=== PATIENT | male | born 1990 | race Caucasian/White ===

== ENCOUNTER 2020-06-03 09:48 | Emergency (ER) | payer BC ==
--- OUTSIDE RECORDS SUMMARY | 2020-06-03 09:50 | XMS REPORT | Continuity of Care Document ---
:1990 Author Organization [facility] t Address [address] [place] [address] Care Team Providers Name Role Phone Soraya Ramirez MD Attending Clinician MARK Attending Clinician Unavailable Problems Condition Condition Condition Status Onset Resolution Last Treating Co mments Source Name Details Category Date Date Treatment Clinician Date Knee pain Knee pain Problem Active Uni vers HL7.[id number] [facility] [place] [facility] Patellofem Patellofem Problem Active U nivers oral oral HL7.CCDAR2 ity of stress stress [place] syndrome syndrome Physic i of left of left ans knee knee Allergies, Adverse Reactions, Alerts This patient has no known allergies or adverse reactions. Medications Ordered Filled Start Stop Current Ordering Indication Dosage Frequency Signature Comments Components Source Medication Medication Date Date Medication? Clinician (SIG) Name Name Diclofenac Diclofenac Yes CUONG FLORES QD APPLY TO Univers Sodium 1 % Sodium 1 % 1-15 M.D. LOWER it y of Transdermal Transdermal 00:00: EXTREMITIE [place] Gel Gel 00 S, 4 GM OF Physici GEL TO ans AFFECTED AREA 4 TIMES DAILY. DO NOT APPLY MORE THAN 16 GM DAILY TO ANY ONE AFFECTED JOINT. Meloxicam Meloxicam 2017-08 Yes CUONG FLORES Q0.5D TAKE 1 Univers 7.5 MG Oral 7.5 MG Oral 2-18 M.D. TABLET ity of Tablet Tablet 00:00: TWICE [place] 00 DAILY Physici NEEDED. ans Procedures This patient has no known procedures. Encounters Start End Encounter Admission Attending Care Care Encounter Source Date/Time Date/Time Type Type Clinicians Facility Department ID 2020-02-23 2020-02-23 Office ANTONIO Ramirez [id number] 10:32:24 11:18:17 Visit Lilianlizbeth Nunez [id number] [place] [id number] Jennifer [id number] [facility] 044 [facility] 2018-08-31 2018-08-31 Appointmen BENJAMIN FLORES [facility] [id number] Univers 14:15:00 14:15:00 t; COUNG FLORES M.D. at [facility] tiffanie HUTCHINS M.D. [place] [facility] 2018-08-03 2018-08-03 Appointmen [facility] [id number] [facility] 14:00:00 14:00:00 t; CUONG FLORES M.D. at [facility] tiffanie HUTCHINS M.D. [place] [facility] ans Results Test Description Test Time Test Comments Results Result Sour e Comments [U] XRAY KNEE 4 2018-08-03 Images Universit y of OR MORE VWS LEFT 14:44:00 acquired, not [place] [id number] reported on Physicians this accession number.
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
[2020-06-03] MEDS ORDERED: FENTANYL CITR 100 MCG/2 ML ONE (11:11)
[2020-06-03] MEDS ORDERED: ONDANSETRON 4 MG/2 ML VIAL ONE (11:12)
--- NOTE | 2020-06-03 11:31 | RAD REPORT ---
EXAM DESCRIPTION: RAD - Knee Left 3 View - 06/03/2020 11:04 am CLINICAL HISTORY: PAIN COMPARISON: No comparisons FINDINGS: No fracture or dislocation is seen. No significant joint effusion.
--- NOTE | 2020-06-03 11:37 | RAD REPORT ---
EXAM DESCRIPTION: RAD - Hip Left 2 View - 06/03/2020 11:04 am CLINICAL HISTORY: PAIN COMPARISON: No comparisons FINDINGS: No fracture, dislocation or AVN.
[2020-06-03 12:52] VITALS: TEMP 98
[2020-06-03 12:56] VITALS: BP 128/86; O2SAT 100
== END 2020-06-03 12:07 | disposition home or self-care (01) ==
LOC: ER 09:48
DX: S70.12XA Contusion of left thigh, initial encounter (principal); W22.8XXA Striking against or struck by other objects, initial encounter; Y93.89 Activity, other specified; Y92.009 Unspecified place in unspecified non-institutional (private) residence as the place of occurrence of the external cause; F17.210 Nicotine dependence, cigarettes, uncomplicated; Z88.2 Allergy status to sulfonamides
CPT/HCPCS: 73502; 73562; 96375; 96374; 99284; J3010; J2405

== ENCOUNTER 2024-11-14 10:12 | Emergency (ER) | payer BC, SELFPAY ==
--- OUTSIDE RECORDS SUMMARY | 2024-11-14 10:18 | XMS REPORT | Continuity of Care Document ---
Author Name Unknown Address [address] [facility] [address] [place] [address] [facility] Address [address] [facility] [address] [facility] [address] [place] [address] Care Team Providers Care Excellence Manager Name Role Phone Gayatri Brady MD Primary Care Physician Doctor Unassigned, [place] Attending Clinician U cherelle Doctor Unassigned, [place] Attending Clinician U navailable RAGHAV PETERSON Attending Clinician UnavailRAGHAV Bauer Attending Clinician Raghav Perez MD Attending Clinician [phone] Gayatri Brady MD Attending Clinician [phone] GAYATRI BRADY Attending Clinician Unavailable Lorrie Matt MD Attending Clinician + [phone] Po, [facility] Main Attending Clinician LENARD Diaz Attending Clinician Unavailable Lenard Jasso NP Attending Clinician [phone] HERNAN VILLALOBOS Attending Clinician Unavailable Hernan Villalobos MD Attending Clinician Rhianna Lipscomb MD Attending Clinician +[phone] RHIANNA LIPSCOMB Attending Clinician TAMARA Riddle Attending Clinician Unavailable Corey Lucio Attending Clinician Unavailable BINA MCKENZIE Attending Clinician Unavailable Bina Mckenzie MD Attending Clinician [phone] Teagan Boswell Attending Clinician [phone] Unknown, Attending Attending Clinician Unavailab TEAGAN Minor Attending Clinician Unavailable KAPIL ESCOBAR Attending Clinician UnavailKAPIL Rowell Attending Clinician Unavailab WAGNER Holder Attending Clinician Unavailable Felicitas Hawthorne MD Attending Clinician + [phone] FELICITAS HAWTHORNE Attending Clinician UnavailCUONG Guy M.D. Attending Clinician UnavailLENARD Peoples Admitting Clinician Unavailable Physician, No Primary or Family Admitting Clinic alexandro Unavailable BINA MCKENZIE Admitting Clinician Unavailable RHIANNA LIPSCOMB Admitting Clinician [facility] Payers Payer Name Policy Type Policy Number Effective Date Expirati on Date Source [facility] [id number] 2020 00:00:00 Problems Condition Name Condition Details Condition Category Status Onset Date Resolution Date Last Treatment Date Treating Clinician Comments Source Chronic pain of left knee Chronic pain of left knee Disease Active 1- 00:00: 00 [facility] Knee pain Knee pain Problem HL7.CCDAR2 Active [facility] 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 Social History Social Habit Start Date Stop Date Quantity Comments Source [facility] History of tobacco use Chews Tobacco [facility] Alcoholic beverage intake 2024-01-13 00:00:00 2024-01-13 00:00:00 Current drinker of alcohol (finding) [facility] History of Social function 2023-12-24 00:00:00 2023-12-24 00:00:00 [facility] Cigarettes smoked current (pack per day) - Reported 2023-12-24 00:00:00 2023-12-24 00:00:00 [facility] Cigarette pack-years 2023-12-24 00:00:00 2023-12-24 00:00:00 [facility] Tobacco use and exposure 2023-12-24 00:00:00 2023-12-24 00:00:00 User of smokeless tobacco [facility] Exposure to SARS-CoV-2 (event) 2022-09-06 00:00:00 2022-09-16 15:37:00 Not sure [facility] Alcohol intake 2020-08-02 00:00:00 2020-08-02 00:00:00 Current drinker of alcohol (finding) [facility] Alcohol Comment 2017-09-11 00:00:00 2017-09-11 00:00:00 12 monthly [facility] Sex assigned at 1990 00:00:00 1990 00:00:00 [facility] Smoking Status Start Date Stop Date Source Smokes tobacco daily 2023-12-24 00:00:00 [facility] Medications Ordered Medication Name Filled Medication Name Start Date Stop Date Current Medication? Ordering Clinician Indication Dosage Frequency Signature (SIG) Comments Components Source HYDROcodone -acetaminop hen 5-325 mg tablet 12-29 00:00: 00 01-06 04:59 :00 No [id number] 1{tbl} Take 1 tablet by mouth every 6 (six) hours as needed for Pain (scale 4-6) for up to 7 days. Indication s: acute pain [facility] HYDROcodone -acetaminop hen (NORCO) 10-325 mg tablet 1 tablet 12-19 18:30: 00 12-19 18:02 :00 No 1{tbl} 1 tablet, Oral, ONCE, 1 dose, On Thu12/20/23 at 1330, Routine [facility] ibuprofen (IBU) tablet 600 mg 12-19 17:45: 00 12-19 18:02 :00 No 600mg 600 mg, Oral, ONCE, 1 dose, On Thu12/20/23 at 1245, CARLA [facility] oseltamivir (TAMIFLU) capsule 75 mg 2022-08 07:00: 00 08-05 06:16 :00 No 75mg 75 mg, Oral, ONCE NOW, 1 dose, On Thu08/05/23 at 0100, CARLA [facility] HYDROcodone -acetaminop hen (NORCO 5) 5-325 mg tablet 1 tablet 2022-08 06:30: 00 08-05 06:35 :00 No 1{tbl} 1 tablet, Oral, ONCE, 1 dose, On Thu08/05/23 at 0030, CARLA [facility] ketorolac (TORADOL) injection 15 mg 2022-08 06:15: 00 08-05 05:29 :00 No 15mg 15 mg, Slow IV Push, ONCE, 1 dose, On Thu08/05/23 at 0015, Routine [facility] NaCl 0.9% (NS) bolus infusion 1,000 mL 2022-08 06:15: 00 08-05 06:16 :00 No 1000mL at 999 mL/hr, 1,000 mL, IV Piggyback, ONCE, 1 dose, On Thu08/05/23 at 0015, STAT [facility] ondansetron 4 mg disintegrat ing tablet 2022-08 00:00: 00 12-19 00:00 :00 No [id number] 4mg Take 1 tablet by mouth every 12 (twelve) hours as needed for Nausea and Vomiting (N/V). [facility] acetaminoph en-codeine 300-30 mg tablet 2022-08 00:00: 00 08-13 05:59 :00 No [id number] 1{tbl} Take 1 tablet by mouth every 4 (four) hours as needed for Pain (scale 7-10) for up to 7 days. Indication s: acute pain [facility] oseltamivir (TAMIFLU) 75 mg capsule 2022-08 00:00: 00 08-11 05:59 :00 No [id number] 75mg Take 1 capsule by mouth in the morning and 1 capsule in the evening. Do all this for 5 days. [facility] tc 99m-mebrofe greer injection 5 millicurie 11-24 13:30: 00 11-24 13:32 :00 No [id number] 5mCi 5 millicurie , Intravenou s, ONCE, 1 dose, On Thu11/24/22 at 0830, Routine [facility] maalox:diph enhydrAMINE :lidocaine 2 % viscous 1:1:1 (FIRST-MOUT HWASH BLM) oral suspension 15 mL 11-12 17:15: 00 11-12 17:13 :00 No 15mL 15 mL, Oral, ONCE, 1 dose, On Thu11/12/22 at 1215, CARLA [facility] sucralfate 1 gram tablet 11-12 00:00: 00 Yes [id number] 1g Take 1 tablet by mouth before meals and at bedtime. [facility] metoclopram cheyanne HCl 10 mg tablet 11-12 00:00: 00 12-19 00:00 :00 No [id number] 10mg Take 1 tablet by mouth every 6 (six) hours. [facility] pantoprazol e (PROTONIX) 40 mg EC tablet 02-03 00:00: 00 Yes [id number] 40mg Take 1 tablet by mouth daily. [facility] maalox:diph enhydrAMINE :lidocaine 2 % viscous 1:1:1 02-03 00:00: 00 12-19 00:00 :00 No [id number] 10mL Take 10 mL by mouth as needed (gastritis ). [facility] sucralfate 1 gram tablet 620 00:00: 00 11-12 00:00 :00 No [id number] 1g Take 1 tablet by mouth before meals and at bedtime. [facility] ketoconazol e 200 mg tablet 02-22 00:00: 12-19 00:00 :00 No [id number] 200mg Take 1 tablet by mouth daily. [facility] econazole nitrate 1 % cream 02-22 00:00: 00 12-19 00:00 :00 No [id number] Apply to area(s) daily. [facility] Diclofenac Sodium 1 % Transdermal Gel Diclofenac Sodium 1 % Transdermal Gel 1-15 00:00: 00 Yes CUONG FLORES M.D. QD APPLY TO LOWER EXTREMITIE S, 4 GM OF GEL TO AFFECTED AREA 4 TIMES DAILY. DO NOT APPLY MORE THAN 16 GM DAILY TO ANY ONE AFFECTED JOINT. [facility] Meloxicam 7.5 MG Oral Tablet Meloxicam 7.5 MG Oral Tablet 2017-08 2-18 00:00: 00 Yes CUONG FLORES M.D. Q0.5D TAKE 1 TABLET TWICE DAILY NEEDED. [facility] traMADOL (ULTRAM) 50 mg tablet 8-19 00:00: 00 12-19 00:00 :00 No 50mg Take 1 tablet by mouth every 6 (six) hours as needed for Pain (scale 4-6). [facility] Immunizations Ordered Immunization Name Filled Immunization Name Date Status Comments Source TD, NOS 2024-02-10 13:26:05 Completed [facility] TD, NOS 2024-01-27 14:00:00 Completed [facility] TD, NOS 2024-01-27 00:00:00 Completed [facility] TD, NOS 2024-01-26 00:00:00 Completed [facility] TD, NOS 2024-01-13 14:32:01 Completed [facility] TD, NOS 2024-01-13 14:30:00 Completed [facility] TD, NOS 2023-12-30 23:57:00 Completed [facility] TD, NOS 2023-12-30 00:00:00 Completed [facility] TD, NOS 2023-12-29 11:51:49 Completed [facility] TD, NOS 2023-12-29 11:49:52 Completed [facility] TD, NOS 2023-12-29 11:00:00 Completed [facility] TD, NOS 2023-12-25 00:00:00 Completed [facility] TD, NOS 2023-12-24 14:45:00 Completed [facility] TD, NOS 2023-12-21 00:00:00 Completed [facility] TD, NOS 2023-12-20 11:41:00 Completed [facility] TD, NOS 2023-08-04 23:12:00 Completed [facility] Td 2018-04-04 00:00:00 Completed [facility] TD, NOS 2018-04-04 00:00:00 Completed [facility] TD, NOS 2018-04-04 00:00:00 Completed [facility] TD, NOS 2018-04-04 00:00:00 Completed [facility] TD, NOS 2018-04-04 00:00:00 Completed [facility] TD, NOS 2018-04-04 00:00:00 Completed [facility] TD, NOS 2018-04-04 00:00:00 Completed [facility] Td 2018-04-04 00:00:00 Completed [facility] Vital Signs Vital Name Observation Time Observation Value Comments S ource Body height 2024-02-10 18:21:00 185.4 cm [facility] Body weight 2024-02-10 18:21:00 88.905 kg [facility] BMI 2024-02-10 18:21:00 25.86 kg/m2 [facility] Systolic blood pressure 2024-01-27 19:15:00 122 mm[Hg] [facility] Diastolic blood pressure 2024-01-27 19:15:00 84 mm[Hg] [facility] Heart rate 2024-01-27 19:14:00 68 /min [facility] Body height 2024-01-27 19:14:00 185.4 cm [facility] Body weight 2024-01-27 19:14:00 88.587 kg [facility] BMI 2024-01-27 19:14:00 25.77 kg/m2 [facility] Oxygen saturation in Arterial blood by Pulse oximetry 2024-01-27 19:14:00 98 /min [facility] Systolic blood pressure 2024-01-13 19:26:00 103 mm[Hg] [place] [facility] Diastolic blood pressure 2024-01-13 19:26:00 70 mm[Hg] [facility] Heart rate 2024-01-13 19:26:00 70 /min [facility] Body height 2024-01-13 19:26:00 185.4 cm [facility] Body weight 2024-01-13 19:26:00 90.765 kg [facility] BMI 2024-01-13 19:26:00 26.40 kg/m2 [facility] Oxygen saturation in Arterial blood by Pulse oximetry 2024-01-13 19:26:00 97 /min [facility] [place] Systolic blood pressure 2023-12-24 19:54:00 106 mm[Hg] [place] [facility] Diastolic blood pressure 2023-12-24 19:54:00 72 mm[Hg] [facility] Heart rate 2023-12-24 19:54:00 70 /min [facility] Body height 2023-12-24 19:54:00 185.4 cm [facility] Body weight 2023-12-24 19:54:00 92.307 kg [facility] BMI 2023-12-24 19:54:00 26.85 kg/m2 [facility] Oxygen saturation in Arterial blood by Pulse oximetry 2023-12-24 19:54:00 98 /min [facility] Systolic blood pressure 2023-12-20 19:14:26 131 mm[Hg] [facility] Diastolic blood pressure 2023-12-20 19:14:26 91 mm[Hg] [facility] Heart rate 2023-12-20 19:14:26 84 /min Unive [facility] Respiratory rate 2023-12-20 19:14:26 12 /min [facility] Oxygen saturation in Arterial blood by Pulse oximetry 2023-12-20 19:14:26 97 /min [facility] Body temperature 2023-12-20 16:39:00 37.28 Clau [facility] Body height 2023-12-20 16:39:00 185.4 cm Univ [facility] Body weight 2023-12-20 16:39:00 99.791 kg [facility] BMI 2023-12-20 16:39:00 29.03 kg/m2 Univ [facility] Body temperature 2023-08-05 06:38:00 38.5 Clau [facility] Systolic blood pressure 2023-08-05 05:09:00 133 mm[Hg] [facility] Diastolic blood pressure 2023-08-05 05:09:00 82 mm[Hg] [facility] Heart rate 2023-08-05 05:09:00 103 /min Unive [facility] Respiratory rate 2023-08-05 05:09:00 20 /min [facility] Body height 2023-08-05 05:09:00 185.4 cm Univ [facility] Body weight 2023-08-05 05:09:00 99.791 kg [facility] BMI 2023-08-05 05:09:00 29.03 kg/m2 [facility] Oxygen saturation in Arterial blood by Pulse oximetry 2023-08-05 05:09:00 97 /min [facility] Systolic blood pressure 2022-11-12 16:40:00 110 mm[Hg] [facility] Diastolic blood pressure 2022-11-12 16:40:00 78 mm[Hg] [facility] Heart rate 2022-11-12 16:40:00 85 /min Unive [facility] Body temperature 2022-11-12 16:40:00 36.61 Clau [facility] Respiratory rate 2022-11-12 16:40:00 18 /min [facility] Body weight 2022-11-12 16:40:00 96.163 kg [facility] BMI 2022-11-12 16:40:00 27.97 kg/m2 [facility] Oxygen saturation in Arterial blood by Pulse oximetry 2022-11-12 16:40:00 99 /min [facility] Systolic blood pressure 2022-07-30 20:23:00 122 mm[Hg] [facility] Diastolic blood pressure 2022-07-30 20:23:00 73 mm[Hg] [facility] Heart rate 2022-07-30 20:23:00 96 /min [facility] Body temperature 2022-07-30 20:23:00 37.06 Clau [facility] Respiratory rate 2022-07-30 20:23:00 16 /min [facility] Body height 2022-07-30 20:23:00 185.4 cm [facility] Body weight 2022-07-30 20:23:00 96.571 kg [facility] BMI 2022-07-30 20:23:00 28.09 kg/m2 [facility] Oxygen saturation in Arterial blood by Pulse oximetry 2022-07-30 20:23:00 98 /min [facility] Procedures Procedure Date / Time Performed Performing Clinician Source DME/SUPPLY JUSTIFICATION 2024-01-22 17:16:52 Doc tor Unassigned, [place] [facility] XR CHEST 1 VW 2023-12-29 17:18:01 [facility] SPLINT FOREARM-HAND STATIC 2023-12-20 18:58:37 Lenard Jasso [facility] COMP. METABOLIC PANEL ([id number]) 2023-08-05 05:25:00 Hernan Villalobos [facility] CBC WITH DIFF 2023-08-05 05:25:00 Hernan Villalobos [facility] RAPID STREP SCREEN FOR GROUP A 2023-08-05 05:15:00 Hernan Villalobos [facility] RAPID INFLUENZA A/B 2023-08-05 05:15:00 Hernan Villalobos [facility] COVID-19 (ID NOW RAPID TESTING) 2023-08-05 05:15:00 Hernan Villalobos [facility] EXTERNAL PROVIDER RECORDS 2022-12-10 05:01:00 Doctor Unassigned, [place] [facility] NM HEPATOBILIARY W INTERVENTION 2022-11-24 15:04:00 Rhianna Lipscomb [facility] NM HEPATOBILIARY W INTERVENTION 2022-11-24 15:04:00 Rhianna Lipscomb [facility] PATIENT FINANCIAL POLICY 2022-11-24 13:02:23 Doctor Unassigned, [place] [facility] LIPASE 2022-11-12 17:12:00 Bina Mckenzie [facility] COMP. METABOLIC PANEL ([id number]) 2022-11-12 17:12:00 Bina Mckenzie [facility] CBC WITH DIFF 2022-11-12 17:12:00 Bina Mckenzie [facility] CONSENT/REFUSAL FOR DIAGNOSIS AND TREATMENT 2022-11-12 16:31:03 Doctor Unassigned, [place] [facility] POCT MOLECULAR FLU 2022-07-30 20:33:00 Unknown, Attend ing [facility] POCT MOLECULAR STREP 2022-07-30 20:26:00 Unknown, Atte nding [facility] ASSIGNMENT OF BENEFITS 2022-07-30 20:17:23 Docto r Unassigned, [place] [facility] Encounters Start Date/Time End Date/Time Encounter Type Admission Type Attending [facility] Care Facility Care Department Encounter ID Source 2021-06-17 02:23:29 Emergency [facility] [id number] [facility] 2024-01-22 00:00:00 2024-10-01 07:34:38 Orders Only Doctor Unassigned, [place] Doctor Unassigned, [place] [facility] 1.2.840.114 350.1.13.10 4.2.7.2.686 [id number] [facility] 2024-01-27 00:00:00 2024-02-27 18:15:19 Patient Secure Msg Doctor Unassigned, [place] [facility]JUAN A [facility] 1.2.840.114 350.1.13.10 4.2.7.2.686 [id number] [facility] 2024-02-10 13:26:05 2024-02-10 23:59:00 Outpatient R PETERSONRAGHAV COLEYRAGHAV [facility] [id number] [facility] 2024-02-10 13:26:05 2024-02-10 23:59:00 Hospital Encounter Raghav Peterson [facility]?JUA NA [facility] 1.2.840.114 350.1.13.10 4.2.7.2.686 [id number] [facility] 2024-02-10 13:30:00 2024-02-10 13:54:26 Office Visit Raghav Peterson [facility] 1.2.840.114 350.1.13.10 4.2.7.2.686 [id number] [facility] 2024-01-27 00:00:00 2024-01-27 16:06:07 Letter (Out) Raghav Peterson [facility] 1.2.840.114 350.1.13.10 4.2.7.2.686 [id number] [facility] 2024-01-27 14:00:00 2024-01-27 14:15:00 Office Visit Gayatri Brady [facility] 1.2.840.114 350.1.13.10 4.2.7.2.686 [id number] [facility] 2024-01-27 14:00:00 2024-01-27 14:00:00 Outpatient R GAYATRI BRADY [facility] [id number] [facility] 2024-01-26 00:00:00 2024-01-27 08:35:59 Telephone Gayatri Brady [facility]JUAN A [facility] 1.2.840.114 350.1.13.10 4.2.7.2.686 [id number] [facility] 2024-01-13 14:32:01 2024-01-13 23:59:00 Outpatient R RAGHAV PETERSON [facility] [id number] [facility] 2024-01-13 14:32:01 2024-01-13 23:59:00 Hospital Encounter Raghav Peterson [facility]JUAN A [facility] 1.2.840.114 350.1.13.10 4.2.7.2.686 [id number] [facility] 2024-01-13 14:30:00 2024-01-13 14:56:01 Office Visit Raghav Peterson [facility] 1.2.840.114 350.1.13.10 4.2.7.2.686 [id number] [facility] 2023-12-30 23:57:00 2023-12-30 23:59:00 Hospital Encounter Peterson Raghav Gabino [facility] 1.2.840.114 350.1.13.10 4.2.7.2.686 [id number] [facility] 2023-12-30 00:00:00 2023-12-30 23:59:00 Outpatient R RAGHAV PETERSON [facility] [id number] [facility] 2023-12-30 00:00:00 2023-12-30 16:38:24 Telephone Lorrie Matt [facility] 1.2.840.114 350.1.13.10 4.2.7.2.686 [id number] [facility] 2023-12-29 11:51:49 2023-12-29 23:59:00 Hospital Encounter Raghav Peterson [facility] 1.2840.114 350.1.13.10 4.2.7.2.686 [id number] [facility] 2023-12-29 11:49:52 2023-12-29 11:50:00 Hospital Encounter Raghav Peterson [facility] 1.2.840.114 350.1.13.10 4.2.7.2.686 [id number] [facility] 2023-12-29 11:49:51 2023-12-29 11:50:00 Outpatient R RAGHAV PETERSON [facility] [id number] [facility] 2023-12-29 11:00:00 2023-12-29 11:15:00 Loss Control Technician Visit Pob, Adc Lab Main Raghav Peterson [facility] 1.2.840.114 350.1.13.10 4.2.7.2.686 [id number] [facility] 2023-12-25 00:00:00 2023-12-25 15:24:18 Telephone Raghav Peterson [facility]?JUAN A [facility] 1.2.840.114 350.1.13.10 4.2.7.2.686 [id number] [facility] 2023-12-24 14:45:00 2023-12-24 15:30:31 Outpatient R RAGHAV PETERSON [facility] [id number] [facility] 2023-12-24 14:45:00 2023-12-24 15:30:31 Office Visit Raghav Peterson [facility] 1.2840.114 350.1.13.10 4.2.7.2.686 [id number] [facility] 2023-12-21 00:00:00 2023-12-22 08:43:24 Telephone Raghav Peterson [facility]?JUANA [facility] 1.2840.114 350.1.13.10 4.2.7.2.686 [id number] [facility] 2023-12-20 11:41:00 2023-12-20 14:19:00 Emergency X LENARD JASSO [facility] [id number] [facility] 2023-12-20 11:41:00 2023-12-20 14:19:00 Emergency Lenard Jasso [facility] 1.2840.114 350.1.13.10 4.2.7.2.686 [id number] [facility] 2023-08-04 23:12:00 2023-08-05 00:49:00 Emergency X HERNAN VILLALOBOS [facility] [id number] [facility] 2023-08-04 23:12:00 2023-08-05 00:49:00 Emergency Hernan Villalobos [facility] 1.20.114 350.1.13.10 4.2.7.2.686 [id number] [facility] 2022-12-10 00:00:00 2022-12-10 00:00:00 Orders Only Doctor Unassigned, [place] [facility] 1.2.840.114 350.1.13.10 4.2.7.2.686 [id number] [facility] 2022-11-24 08:02:28 2022-11-24 23:59:00 Hospital Encounter Rhianna Taylor [facility] 1.2840.114 350.1.13.10 4.2.7.2.686 [id number] [facility] 2022-11-24 08:01:41 2022-11-24 08:01:00 Outpatient R RHIANNA TAYLOR [facility] [id number] [facility] 2022-11-24 08:00:00 2022-11-24 08:01:00 Hospital Encounter Rhianna Taylor [facility] 1.2840.114 350.1.13.10 4.2.7.2.686 [id number] [facility] 2022-11-19 08:45:00 2022-11-19 08:45:00 Outpatient TAMARA GALINDO [id number] [place] [facility] 2022-11-14 12:40:00 2022-11-14 17:49:00 Emergency EM Corey Lucio [facility]ACL ANDREA [id number] [facility] 2022-11-12 11:42:00 2022-11-12 14:01:00 Emergency X BINA MCKENZIE [facility] ERT [id number] [facility] 2022-11-12 11:42:00 2022-11-12 14:01:00 Emergency Bina Mckenzie [facility] 1.2840.114 350.1.13.10 4.2.7.2.686 [id number] [facility] 2022-11-12 00:00:00 2022-11-12 00:00:00 Orders Only Doctor Unassigned, [place] [facility] 1.2840.114 350.1.13.10 4.2.7.2.686 [id number] [facility] 2022-09-19 16:20:01 2022-09-19 23:59:00 Outpatient R RHIANNA TAYLOR [facility] [id number] [facility] 2022-09-19 16:20:01 2022-09-19 23:59:00 Hospital Encounter Rhianna Taylor [facility] 1.2.840.114 350.1.13.10 4.2.7.2.686 [id number] [facility] 2022-07-30 14:20:00 2022-07-30 14:40:00 Urgent Care Teagan Keenan Unknown, Attending [facility]?JUAN A [facility] 1.2.840.114 350.1.13.10 4.2.7.2.686 [id number] [facility] 2022-07-30 14:20:00 2022-07-30 14:20:00 Outpatient R TEAGAN KEENAN [facility] [id number] [facility] 2022-07-30 00:00:00 2022-07-30 00:00:00 Orders Only Doctor Unassigned, [place] [facility] 1.2.840.114 350.1.13.10 4.2.7.2.686 [id number] [facility] 2021-09-19 10:00:00 2021-09-19 10:00:00 Outpatient R WAGNER ROUSSEAU [facility] [id number] [facility] 2021-02-22 14:45:00 2021-02-22 14:45:00 Outpatient R RHIANNA TAYLOR [facility] [id number] [facility] 2020-11-05 08:30:00 2020-11-05 08:30:00 Outpatient R GAYATRI BRADY [facility] [id number] [facility] 2020-08-02 11:40:00 2020-08-02 11:40:00 Outpatient R [facility] [id number] [facility] 2020-02-23 10:32:24 2020-02-23 11:18:17 Office Visit Felicitas Hawthorne [facility] 1.2.840.114 350.1.13.10 4.2.7.2.686 [id number] 2020-02-23 10:30:00 2020-02-23 10:30:00 Outpatient R FELICITAS HAWTHORNE [facility] [id number] [facility] 2019-10-10 12:00:00 2019-10-10 12:00:00 Outpatient WAGNER POON [facility] [id number] [facility] 2018-08-31 14:15:00 2018-08-31 14:15:00 AppointCUONG Jimenez M.D. MEEKS, EVAN, M.D. [facility] [place] [id number] [place] [facility] 2018-08-03 14:00:00 2018-08-03 14:00:00 AppointCUONG Jimenez M.D. MEEKS, EVAN, M.D. [facility] [place] [id number] [place] [facility] Results Test Description Test Time Test Comments Results Result Comments Source DME/SUPPLY JUSTIFICATION 17:16:52 Ordered by an unspecified provider. [facility] XR CHEST 1 VW 18:13:00 ORDERING PROVIDER: RAGHAV PETERSONHISTORY: surgery TECHNIQUE: Portable AP view of the chest.COMPARISON(S): None. FINDINGS:Support devices: None. Lungs/pleura: Lungs are clear. No pleural effusion or pneumothorax. Heart/mediastinum: Heart and mediastinum are normal. Bones/Soft Tissues: No acute osseous abnormality. Upper abdomen: Imaged upper abdomen is unremarkable. [facility] Splint Application 18:58:37 Lenard Jasso NP ? ? 12/20/2023 ?2:10 PMSplint Application Date/Time: 12/20/2023 1:58 PM Performed by: Lenard Jasso NPAuthorized by: Lenard Jasso NP ?Consent: ?Consent obtained: ?Verbal ?Consent given by: ?Patient ?Risks, benefits, and alternatives were discussed: yes ? ?Risks discussed: ?Discoloration, numbness, pain and swelling ?Alternatives discussed: ?No treatmentUniversal protocol: ?Procedure explained and questions answered to patient or proxy's satisfaction: yes ? ?Patient identity confirmed: ?Verbally with patientPre-procedure details: ?Distal neurologic exam: ?Normal ?Distal perfusion: distal pulses strong and brisk capillary refill ?Procedure details: ?Location: ?Hand ?Hand location: ?R hand ?Strapping: no ? ?Splint type: ?Volar short arm ?Supplies: ?Fiberglass ?Attestation: Splint applied and adjusted personally by me ?Post-procedure details: ?Distal neurologic exam: ?Normal ?Distal perfusion: distal pulses strong and brisk capillary refill ?Comments: ? Signs of compartment syndrome discussed with return precautions [facility] with [id number] 05:58:47* Test Item Value Reference Range Interpretation Comme nts WBC (test code = 6690-2) 7.58 See_Comment [Automated Playtikaa EnergyChest] The system which generated this result transmitted reference range: 4.20 - 10.70 10*3/?L. The reference range was not used to interpret this result as normal/abnormal. RBC (test code = 789-8) 5.15 See_Comment [Automated Defense Mobile] The system which generated this result transmitted reference range: 4.26 - 5.52 10*6/?L. The reference range was not used to interpret this result as normal/abnormal. HGB (test code = 718-7) 16.0 g/dL 12.2-16.4 HCT (test code = 4544-3) 45.7 % 38.4-49.3 MCV (test code = 787-2) 88.7 fL 81.7-95.6 MCH (test code = 785-6) 31.1 pg 26.1-32.7 MCHC (test code = 786-4) 35.0 g/dL 31.2-35.0 RDW-SD (test code = 75827-3) 43.3 fL 38.5-51.6 RDW-CV (test code = 788-0) 13.2 % 12.1-15.4 PLT (test code = 777-3) 218 See_Comment [Automated Playtikaa ge] The system which generated this result transmitted reference range: 150 - 328 10*3/?L. The reference range was not used to interpret this result as normal/abnormal. MPV (test code = 04667-4) 11.0 fL 9.8-13.0 NRBC/100 WBC (test code = 8446954167) 0.0 See_Comment [Automated Greenbox ssage] The system which generated this result transmitted reference range: 0.0 - 10.0 /100 WBCs. The reference range was not used to interpret this result as normal/abnormal. NRBC x10^3 (test code = 8689293369) See_Comment [Automated Playtikaa ge] The system which generated this result transmitted reference range: 10*3/?L. The reference range was not used to interpret this result as normal/abnormal. GRAN MAT (NEUT) % (test code = 770-8) 70.6 % IMM GRAN % (test code = 6247916764) 0.30 % LYMPH % (test code = 736-9) 14.8 % MONO % (test code = 5905-5) 13.1 % EOS % (test code = 713-8) 0.4 % BASO % (test code = 706-2) 0.8 % GRAN MAT x10^3(ANC) (test code = 2731441865) 5.36 10*3/uL 1.99-6.95 IMM GRAN x10^3 (test code = 5656604536) 0.00-0.06 LYMPH x10^3 (test code = 731-0) 1.12 10*3/uL 1.09-3.23 MONO x10^3 (test code = 742-7) 0.99 10*3/uL 0.36-1.02 EOS x10^3 (test code = 711-2) 0.03 10*3/uL 0.06-0.53 L BASO x10^3 (test code = 704-7) 0.06 10*3/uL 0.01-0.09 Lab Interpretation (test code = 31536-3) Abnormal [facility] [id number] 14:51:00* Test Item Value Reference Range Interpretation Comme nts SODIUM (test code = NA) 141 mEq/L 134-147 N POTASSIUM (test code = K) 3.6 mEq/L 3.4-5.0 N CHLORIDE (test code = CL) 107 mEq/L 100-108 N CARBON DIOXIDE (test code = CO2) 27 mEq/l 21-33 N ANION GAP (test code = GAP) 10 0-20 N GLUCOSE (test code = GLU) 97 mg/dL 70-110 N BLOOD UREA NITROGEN (test code = BUN) 12 mg/dL 7-18 N GLOMERULAR FILTRATION RATE (test code = GFR) 102.6 105-110 L The Glomerular Filtration Rate is a calculated parameterbased on serum Creatinine, patient age and sex. GFR valuesless than 60 mL/min/1.73 square meters are indicative ofChronic Kidney Disease. Values less than 15 mL/min/1.73square meters indicate Kidney failure. The calculation forGFR is based on the CKD-EPI (2020) calculation. This formulais race indifferent and is the recommended formula for GFRby the National Kidney Foundation for Adults.The GFR will not calculate if the sex is unknown or if thepatient's age is <18 years. CREATININE (test code = CREAT) 1.0 mg/dL 0.6-1.3 N TOTAL PROTEIN (test code = PROT) 7.4 g/dL 6.4-8.2 N ALBUMIN (test code = ALB) 4.40 g/dL 3.4-5.0 N CALCIUM (test code = CA) 9.2 mg/dL 8.0-10.5 N BILIRUBIN TOTAL (test code = BILT) 0.50 mg/dL 0.0-1.0 N SGOT/AST (test code = AST) 22 IUnit/L 15-37 N SGPT/ALT (test code = ALT) 21 IUnit/L 30-65 L ALKALINE PHOSPHATASE TOTAL (test code = ALKP) 85 IUnit/L 20-125 N TROP-I HIGH [id number] 14:51:00* Test Item Value Reference Range Interpretation Comme nts TROP-I HIGH SENSITIVITY (test code = TROPIHS) < 3 ng/L 0-54 N CAUTION: Units o f the current test methodology (ng/L) differfrom the prior test methodology (ng/mL) by a factor of 1000. 99th Percentile Upper Reference Limit (URL): Females: 34 ng/LMales: 54 ng/L In order to distinguish acute elevations of high sensitivitytroponin from other clinical conditions, the FourthUniversal Definition of Myocardial Infarction stressesclinical assessment and the demonstration of a rise and/orfall in serial troponin results above the URL. These results were obtained using Siemens AteAddoway IM TnIHreagent. Results from different methodologies should not becompared to one another as quantitative results and URLs mayvary by method. INFLUENZA A [id number] 14:33:00* Test Item Value Reference Range Interpretation Comme nts INFLUENZA A (test code = FLUAPCR) Negative Negative INFLUENZA B (test code = FLUBPCR) Negative Negative Coronavirus 2018 nCoV [id number] 14:33:00* Test Item Value Reference Range Interpretation Comme nts Coronavirus 2019 nCoV Bedside (test code = PAEZQ69UMAOI) NEGATIVE Negative The [employer] ID NO W utilizes isothermal Nicking EnzymeAmplification Reaction (NEAR) technology in the qualitativedetection of infectious diseases. With NEAR technology,amplified target detection is achieved with the use offluorescently labeled molecular beacons, comparable to PCRtechniques -----Negative results should be treated as presumptive and, ifinconsistent with clinical signs and symptoms or necessaryfor patient management, should be tested with an alternativemolecular assay. Negative results do not preclude GFBM-NtY-8vbcfbulsr and should not be used as the sole basis forpatient management decisions. Negative results should beconsidered in the context of a patient's recent exposures,history, presence of clinical signs and symptoms consistentwith COVID-19. CBC W/AUTO [id number] 14:14:00* Test Item Value Reference Range Interpretation Comme nts WHITE BLOOD CELL (test code = WBC) 7.6 x10 3/uL 4.5-11.0 N RED BLOOD CELL (test code = RBC) 5.12 x10 6/uL 4.00-5.60 N HEMOGLOBIN (test code = HGB) 15.5 g/dL 12.5-16.9 N HEMATOCRIT (test code = HCT) 44.4 % 37.5-50.7 N MEAN CELL VOLUME (test code = MCV) 86.7 fL 81.0-99.0 N MEAN CELL HGB (test code = MCH) 30.3 pg 27.0-33.0 N MEAN CELL HGB CONCETRATION (test code = MCHC) 34.9 g/dL 33.0-37.0 N RED CELL DISTRIBUTION WIDTH CV (test code = RDW) 13.2 % 11.5-14.5 N RED CELL DISTRIBUTION WIDTH SD (test code = RDW-SD) 41.1 fL 37.0-54.0 N PLATELET COUNT (test code = PLT) 297 x10 3/uL 150-400 N MEAN PLATELET VOLUME (test c ode = MPV) 9.9 fL 7.0-9.0 H NEUTROPHIL % (test code = NT%) 53.9 % 56.0-77.0 L IMMATURE GRANULOCYTE % (test code = IG%) 0.3 % 0.0-2.0 N LYMPHOCYTE % (test code = LY%) 30.7 % 14.0-32.0 N MONOCYTE % (test code = MO%) 10.0 % 4.8-9.0 H EOSINOPHIL % (test code = EO%) 4.3 % 0.3-3.7 H BASOPHIL % (test code = BA%) 0.8 % 0.0-2.0 N NUCLEATED RBC % (test code = NRBC%) 0.0 % 0-0 N NEUTROPHIL # (test code = NT#) 4.09 x10 3/uL 2.0-7.6 N IMMATURE GRANULOCYTE # (test code = IG#) 0.02 x10 3/uL 0.00-0.03 N LYMPHOCYTE # (test code = LY#) 2.33 x10 3/uL 1.0-3.8 N MONOCYTE # (test code = MO#) 0.76 x10 3/uL 0.1-0.8 N EOSINOPHIL # (test code = EO#) 0.33 x10 3/uL 0.0-0.2 H BASOPHIL # (test code = BA#) 0.06 x10 3/uL 0.0-0.2 N NUCLEATED RBC # (test code = NRBC#) 0.00 x10 3/uL 0.0-0.1 N MANUAL DIFF REQUIRED (test c ode = MDIFF) NO - XR CHEST 1 [id number] 00:00:00 [facility] 1990 Sex: M FAX: Manuel Marquez [phone] [place]: St: REG Name: IWONA LOPEZ [facility] : 1990 Age/S: 32/M [address] [place] [address] Bl Unit #: [id number] Loc: [place] [address] Phys: Manuel Pina Acct: [id number] Dis Date: Status: REG ER PHONE #: [phone] Exam Date: 11/14/2022 1403 FAX #: [phone] Reason: upper abd pain EXAMS: CPT CODE: [id number] XR CHEST 1 V 48565 PROCEDURE INFORMATION: Exam:XR Chest Exam date and time: 11/14/2022 2:01 PM Age: 32 years old Clinical indication: Other: Upper abd pain, h/x of hernia TECHNIQUE: Imaging protocol: Radiologic exam of the chest. Views: 1 view. COMPARISON: No relevant prior studies available. FINDINGS: Lungs: . No gross consolidation. Pleural spaces: No significant pleural effusion. No significant pneumothorax. Heart/Mediastinum: Grossly normal cardiac silhouette. Vasculature is unremarkable. Bones/joints: No radiographically evident of displaced rib fracture. IMPRESSION: No acute cardiopulmonary process detected. at 1431 Reported and signed by: Jose Antonio Camara M.D. CC: Manuel CASAS Technologist: RT Deb(Kalee) Trnscrd Date/Time/By: 11/14/2022 (1431) : By: [email or web address] Orig Print D/T: S: 11/14/2022 (1431) PAGE 1 Signed ReportCOMP. METABOLIC PANEL (03316)2022-11-12 17:55:35* Test Item Value Reference Range Interpretation Comme nts NA (test code = 3493333139) 137 mmol/L 135-145 K (test code = 7708846860) 4.2 mmol/L 3.5-5.0 CL (test code = 4326629821) 103 mmol/L 98-108 CO2 TOTAL (test code = 3489093314) 27 mmol/L 23-31 AGAP (test code = 3662928360) 7 2-16 BUN (test code = 3514817872) 8 mg/dL 7-23 GLUCOSE (test code = 7390606634) 83 mg/dL 70-110 CREATININE (test code = 6293796684) 0.96 mg/dL 0.60-1.25 TOTAL BILI (test code = 5149303938) 0.8 mg/dL 0.1-1.1 CALCIUM (test code = 1120890906) 9.5 mg/dL 8.6-10.6 T PROTEIN (test code = 5087729979) 7.3 g/dL 6.3-8.2 ALBUMIN (test code = 6012024281) 4.6 g/dL 3.5-5.0 ALK PHOS (test code = 7215387189) 68 U/L 34-122 ALTv (test code = 1742-6) 28 U/L 5-50 AST(SGOT) (test code = 0816152505) 30 U/L 13-40 eGFR (test code = 0428141639) 90.8 mL/min/1.73m2 LILA (test code = LILA) Association of Glomerular Filtration Rate (GFR) and Staging of Kidney Disease* + + +- +| GFR (mL/min/1.73 m2) ?| With Kidney Damage ?| ?Without Kidney Damage+ ------+ ----+ ------+| ?>90 ?| ?Stage one ?| ? Normal ?+ -+ + -+| ?60-89 ?| ?Stage two ?| ? Decreased GFR ? + + +- +| ?30-59 ?| ?Stage three ?| ? Stage three ? + + +- +| ?15-29 ?| ?Stage four ? | ? Stage four ?+ -+ + -+| ?<15 (or dialysis) ? ?| ?Stage five ? | ? Stage five ?+ -+ + -+ *Each stage assumes the associated GFR level has been in effect for at least three months. ?Stages 1 to 5, with or without kidney disease, indicate chronic kidney disease. Notes: Determination of stages one and two (with eGFR >59mL/min/1.73 m2) requires estimation of kidney damage for at least three months as defined by structural or functional abnormalities of the kidney, manifested by either:Pathological abnormalities or Markers of kidney damage (including abnormalities in the composition of the blood or urine or abnormalities in imaging tests). [facility] 17:55:15* Test Item Value Reference Range Interpretation Comme nts LIPASE (test code = 8880021497) 127 U/L 0-220 Lab Interpretation (test cod e = 32778-9) Normal [facility] WITH [id number] 17:42:12* Test Item Value Reference Range Interpretation Comme nts WBC (test code = 6690-2) 8.38 See_Comment [Automated messa ge] The system which generated this result transmitted reference range: 4.20 - 10.70 10*3/?L. The reference range was not used to interpret this result as normal/abnormal. RBC (test code = 789-8) 4.98 See_Comment [Automated Playtikaa ge] The system which generated this result transmitted reference range: 4.26 - 5.52 10*6/?L. The reference range was not used to interpret this result as normal/abnormal. HGB (test code = 718-7) 15.3 g/dL 12.2-16.4 HCT (test code = 4544-3) 43.6 % 38.4-49.3 MCV (test code = 787-2) 87.6 fL 81.7-95.6 MCH (test code = 785-6) 30.7 pg 26.1-32.7 MCHC (test code = 786-4) 35.1 g/dL 31.2-35.0 H RDW-SD (test code = 80130-7) 42.1 fL 38.5-51.6 RDW-CV (test code = 788-0) 13.1 % 12.1-15.4 PLT (test code = 777-3) 296 See_Comment [Automated Playtikaa ge] The system which generated this result transmitted reference range: 150 - 328 10*3/?L. The reference range was not used to interpret this result as normal/abnormal. MPV (test code = 75510-3) 10.0 fL 9.8-13.0 NRBC/100 WBC (test code = 2386032392) 0.0 See_Comment [Automated Greenbox ssage] The system which generated this result transmitted reference range: 0.0 - 10.0 /100 WBCs. The reference range was not used to interpret this result as normal/abnormal. NRBC x10^3 (test code = 6048508804) See_Comment [Automated Playtikaa ge] The system which generated this result transmitted reference range: 10*3/?L. The reference range was not used to interpret this result as normal/abnormal. GRAN MAT (NEUT) % (test code = 770-8) 55.1 % IMM GRAN % (test code = 6354130677) 0.20 % LYMPH % (test code = 736-9) 30.3 % MONO % (test code = 5905-5) 9.7 % EOS % (test code = 713-8) 3.7 % BASO % (test code = 706-2) 1.0 % GRAN MAT x10^3(ANC) (test code = 7199557977) 4.62 10*3/uL 1.99-6.95 IMM GRAN x10^3 (test code = 5637614684) 0.00-0.06 LYMPH x10^3 (test code = 731-0) 2.54 10*3/uL 1.09-3.23 MONO x10^3 (test code = 742-7) 0.81 10*3/uL 0.36-1.02 EOS x10^3 (test code = 711-2) 0.31 10*3/uL 0.06-0.53 BASO x10^3 (test code = 704-7) 0.08 10*3/uL 0.01-0.09 Lab Interpretation (test code = 53470-3) Abnormal [facility] MOLECULAR [id number] 20:44:32* Test Item Value Reference Range Interpretation Comme nts POCT Molecular FluA (test co de = 69139-6) Negative Negative POCT Molecular FluB (test co de = 97810-7) Negative Negative Lab Interpretation (test cod e = 22494-7) Normal [facility] MOLECULAR [id number] 20:33:38* Test Item Value Reference Range Interpretation Comme nts POCT Molecular Strep (test c ode = 60592-7) Negative Negative Lab Interpretation (test cod e = 62736-1) Normal [facility][U] XRAY KNEE 4 OR MORE VWS LEFT [id number] 2018-08-03 14:44:00Images acquired, not reported on this accession number.[facility] Physicians Notes Date/Time Note Provider Source 2024-01-27 15:23:52 Pt is calling to speak with nurse to see if Dr. Peterson can assist with writing letter . Please advise. Marko Kerr [facility] 2024-01-27 08:30:05 Unable to contact patient or leave a VM. I called patient to let him know Dr. Brady has agreed to see him for his visit today. He did not guarantee that he can take stiches out but he can take a look. He will no be able to release him to work because he did not preformed the surgery . Only Dr. Peterson can release patient back to work. Elizabeth Joseph [facility] 2024-01-26 15:31:56 Patient requesting to see Dr. Brady to emilie pin removed from surgery. Patient has not seen Dr. Brady in the past [address] 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 Will Dr. Brady be okay to see patient? [facility] 2023-12-29 11:00:00 Images from the original note were not included. Venipuncture collection performed by clean technique on the left anticubitus. Total of 1 attempts were made. Slight pressure and a bandage/dressing were applied to the site(s). The patient experienced no complications. The following specimens were processed according to instructions and sent to [facility] laboratories per lab order on 12/29/2023: LT BLUE SST 1 RED LAV 1 PPT DK GREEN (LiHep) DK GREEN (SodH) MARKS DK BLUE (K2) DK BLUE (S) ACD Blood Culture NIPT/NTD T [facility] 2023-12-25 15:22:43 Pre op orders. Goldie Anthony 12/25/2023 3:23 PM [facility] 2023-12-22 08:42:35 Pt given estimate & placed on waitlist DOI 12/20/23 Michelle Vasquez [facility] 2023-12-21 17:33:14 Iwona Lopez is a 33 year old male Pt called to discuss with clinic if there was a sooner appointment and to discuss how much the visit would be for a self pay. Please advise. Perez Barr [facility] 2023-12-20 14:18:02 Patient given discharge instructions on metacarpale fracture. Advised to take tylenol and ibuprofen otc for pain. Elevate hand above heart. Follow up with Dr. Peterson in 3 days. Pt left ER ambulatory. Reports is giving him a ride home. No signs of distress. Leola Davis RN [facility] 2023-12-20 11:39:11 Iwona Lopez is a 33 year old male c/o right hand pain s/p punching door jam last night, noted dorsal hand /wrist swelling, cms intact Giulia Avalos RN [facility] 2023-12-20 11:36:00 Associated Order(s): Splint Application Images from the original note were not included. [facility] Emergency Department Note Patient Name: Iwona Lopez Date of : 1990 33 year old male Treatment Room: [facility] FT03/CLSP24-16 Primary Care Physician: Gayatri Brady Patient Escorted by: Family [5] Mode of Arrival: Personal means [1] EMS Treatment Prior to ED Arrival: [facility] treatment: None Chief Complaint: Chief Complaint Patient presents with Hand Pain History of Present Illness: Iwona Lopez is a 33 year old male who in a fit of anger hit a door jam with his fisted right hand running his right forearm in the closet door at the same time, Occurred yesterday History provided by: Patient Hand Injury Location: Wrist and hand Wrist location: R wrist Hand location: R hand Injury: yes Time since incident: 1 day Mechanism of injury comment: Fisted hand to wooden door jam Pain details: Quality: Throbbing, sharp and shooting Radiates to: Does not radiate Severity: Moderate Onset quality: Sudden Duration: 1 day Progression: Worsening Handedness: Right-handed Foreign body present: No foreign bodies Tetanus status: Up to date Prior injury to area: No Relieved by: None tried Worsened by: Movement Ineffective treatments: None tried Associated symptoms: decreased range of motion and swelling Associated symptoms: no back pain Past Medical History/Immunizations: No past medical history on file. Tetanus received in last 5 years: Unknown Childhood immunizations: Up-to-date Allergies: Allergies Allergen Reactions Sulfa (Sulfonamide Antibiotics) Rash Past Social History: Tobacco Use Every Day; 1 pack/day; Smoked an average of 1 pack/day for 9.0 years; Types: Cigarettes Smokeless Tobacco: Current user of smokeless tobacco; Types: Chew, Snuff. Alcohol Use Yes. Comments: 12 monthly Drug Use No. Past Surgical History: No past surgical history on file. Review of Systems: Review of Systems Constitutional: Negative. HENT: Negative. Cardiovascular: Negative. Gastrointestinal: Negative. Genitourinary: Negative. Musculoskeletal: Positive for joint swelling. Negative for back pain. Skin: Positive for wound. Neurological: Negative. Psychiatric/Behavioral: Negative. Physical Exam: ED Triage Vitals [12/20/23 1139] Weight 99.8 kg (220 lb) Actual or estimated Estimated by patient/family report Height 1.854 m (6' 1") BP (!) 140/88 Pulse 80 Resp 14 Temp 37.3 ?C (99.1 ?F) Temp source Oral SpO2 99 % Measured on Room air Physical Exam Vitals and nursing note reviewed. Constitutional: General: He is not in acute distress. Appearance: Normal appearance. He is well-developed and normal weight. He is not ill-appearing, toxic-appearing or diaphoretic. HENT: Head: Normocephalic. Right Ear: External ear normal. Left Ear: External ear normal. Nose: Nose normal. Mouth/Throat: Mouth: Mucous membranes are moist. Pharynx: Oropharynx is clear. Eyes: General: No scleral icterus. Conjunctiva/sclera: Conjunctivae normal. Cardiovascular: Rate and Rhythm: Normal rate and regular rhythm. Pulses: Normal pulses. Heart sounds: Normal heart sounds. Pulmonary: Effort: Pulmonary effort is normal. No respiratory distress. Breath sounds: Normal breath sounds. No stridor. No wheezing. Musculoskeletal: General: Swelling, tenderness, deformity and signs of injury present. Right hand: Deformity, tenderness and bony tenderness present. No swelling. Decreased range of motion. Normal sensation. There is no disruption of two-point discrimination. Normal capillary refill. Normal pulse. Arms: Cervical back: Normal range of motion and neck supple. No rigidity or tenderness. Skin: General: Skin is warm and dry. Capillary Refill: Capillary refill takes less than 2 seconds. Coloration: Skin is not jaundiced or pale. Findings: No bruising, erythema, lesion or rash. Neurological: General: No focal deficit present. Mental Status: He is alert and oriented to person, place, and time. Cranial Nerves: No cranial nerve deficit. Motor: No weakness. Psychiatric: Mood and Affect: Mood normal. Behavior: Behavior normal. Thought Content: Thought content normal. Judgment: Judgment normal. Radiology: reviewed by co XR FOREARM 2 VW RIGHT Preliminary Result EXAM: XR HAND 3+ VW RIGHT, XR WRIST 3+ VW RIGHT, XR FOREARM 2 VW RIGHT HISTORY: 33 years-old Male with R/O fracture hit a wall COMPARISON: None. FINDINGS: Radiographs of the right hand, wrist, and forearm were obtained. An intra-articular fracture of the base of the fourth metacarpal is present. There is swelling over the ulnar hand. The joint spaces of the hand are preserved. IMPRESSION Intra-articular fracture of the base of the fourth metacarpal Preliminary Report Dictated by Resident: Dustin Nice XR WRIST 3+ VW RIGHT Preliminary Result EXAM: XR HAND 3+ VW RIGHT, XR WRIST 3+ VW RIGHT, XR FOREARM 2 VW RIGHT HISTORY: 33 years-old Male with R/O fracture hit a wall COMPARISON: None. FINDINGS: Radiographs of the right hand, wrist, and forearm were obtained. An intra-articular fracture of the base of the fourth metacarpal is present. There is swelling over the ulnar hand. The joint spaces of the hand are preserved. IMPRESSION Intra-articular fracture of the base of the fourth metacarpal Preliminary Report Dictated by Resident: Dustin Nice XR HAND 3+ VW RIGHT Preliminary Result EXAM: XR HAND 3+ VW RIGHT, XR WRIST 3+ VW RIGHT, XR FOREARM 2 VW RIGHT HISTORY: 33 years-old Male with R/O fracture hit a wall COMPARISON: None. FINDINGS: Radiographs of the right hand, wrist, and forearm were obtained. An intra-articular fracture of the base of the fourth metacarpal is present. There is swelling over the ulnar hand. The joint spaces of the hand are preserved. IMPRESSION Intra-articular fracture of the base of the fourth metacarpal Preliminary Report Dictated by Resident: Dustin Nice Lab Results: Lab Results - No data to display EKG: If EKG completed, see Procedure Note. Orders and Treatments: Orders Placed This Encounter Procedures Splint Application XR FOREARM 2 VW RIGHT XR WRIST 3+ VW RIGHT XR HAND 3+ VW RIGHT Orders Placed This Encounter Medications ibuprofen (IBU) tablet 600 mg HYDROcodone-acetaminophen (NORCO) 10-325 mg tablet 1 tablet First Provider Eval: ED Events Date/Time Event User Comments 12/20/23 1159 Medical Screening Begins PAULA JASSO -- 12/20/23 1159 First Provider Evaluation PAULA JASSO -- ED COURSE Diagnosis/Impression as of 12/20/23 1410 Hand injury, right, initial encounter Abrasion of right hand, initial encounter Closed nondisplaced fracture of base of third metacarpal bone of right hand, initial encounter Procedures: Splint Application Date/Time: 12/20/2023 1:58 PM Performed by: Lenard Jasso NP Authorized by: Lenard Jasso NP Consent: Consent obtained: Verbal Consent given by: Patient Risks, benefits, and alternatives were discussed: yes Risks discussed: Discoloration, numbness, pain and swelling Alternatives discussed: No treatment [place] protocol: Procedure explained and questions answered to patient or proxy's satisfaction: yes Patient identity confirmed: Verbally with patient Pre-procedure details: Distal neurologic exam: Normal Distal perfusion: distal pulses strong and brisk capillary refill Procedure details: Location: Hand Hand location: R hand Strapping: no Splint type: Volar short arm Supplies: Fiberglass Attestation: Splint applied and adjusted personally by me Post-procedure details: Distal neurologic exam: Normal Distal perfusion: distal pulses strong and brisk capillary refill Comments: Signs of compartment syndrome discussed with return precautions MDM: Medical Decision Making Iwona Lopez is a 33 year old male who in a fit of anger hit a door jam with his fisted right hand running his right forearm in the closet door at the same time, Occurred yesterday Differentials include fracture, dislocation, sprain, strain, abrasion, contusion Plan xray and pain mgmt Problems Addressed: Abrasion of right hand, initial encounter: acute illness or injury Closed nondisplaced fracture of base of third metacarpal bone of right hand, initial encounter: acute illness or injury Details: Place in volar splint [employer] checked post application and intact Splint care and compartment syndrome discussed Ortho follow up, referral sent Hand injury, right, initial encounter: acute illness or injury Details: Self induced by hitting door jam with closed fist Amount and/or Complexity of Data Reviewed Radiology: ordered. Decision-making details documented in ED Course. Details: Intra-articular fracture of the base of the fourth metacarpal Risk Prescription drug management. Flowsheet Documentation: Patient Vitals for the past 24 hrs: BP Temp Temp src Pulse Resp SpO2 Height Weight 12/20/23 1139 (!) 140/88 37.3 ?C (99.1 ?F) Oral 80 14 99 % 1.854 m (6' 1") 99.8 kg (220 lb) Disposition/Condition: ED Disposition ED Disposition Disch - Home Condition Stable Comment -- Discharge Medications: Patient's Medications START taking these medications No medications on file CONTINUE taking these medications which have NOT CHANGED PANTOPRAZOLE (PROTONIX) 40 MG EC TABLET Take 1 tablet by mouth daily. SUCRALFATE 1 GRAM TABLET Take 1 tablet by mouth before meals and at bedtime. START taking Modified Medications as Prescribed No medications on file STOP taking these medications ECONAZOLE NITRATE 1 % CREAM Apply to area(s) daily. KETOCONAZOLE 200 MG TABLET Take 1 tablet by mouth daily. MAALOX:DIPHENHYDRAMINE:LIDOCAIN E 2 % VISCOUS 1:1:1 Take 10 mL by mouth as needed (gastritis). METOCLOPRAMIDE HCL 10 MG TABLET Take 1 tablet by mouth every 6 (six) hours. ONDANSETRON 4 MG DISINTEGRATING TABLET Take 1 tablet by mouth every 12 (twelve) hours as needed for Nausea and Vomiting (N/V). TRAMADOL (ULTRAM) 50 MG TABLET Take 1 tablet by mouth every 6 (six) hours as needed for Pain (scale 4-6). Follow-up: Contact information for follow-up Gayatri Brady MD Specialty: FM-FAMILY MEDICINE Relationship: PCP - General Fernie Husain [facility] [phone] Electronically signed by: Lenard Jasso NP 12/20/23 1410 Associated attestation - Davidson Johnston DO - 12/20/2023 2:15 PM CDT This patient was examined, evaluated and cared for by the advanced practice provider. I did not examine or evaluate this patient. I was present for consultation as needed. [facility] 2022-11-14 12:43:00 [facility] ([facility] EMERGENCY PROVIDER REPORT REPORT#:[id number] REPORT STATUS: Signed DATE:11/14/22 TIME: 124 PATIENT: IWONA LOPEZ UNIT #: [id number] ROOM/BED: AGE: 32 SEX: M PCP PHYS: No Primary or Family Physician SERVICE AUTHOR: Manuel Pina * ALL edits or amendments must be made on the electronic/computer document * Manuel Pina 11/14/22 1243: HPI-Nausea/Vomit/Diarrhea Free Text HPI Notes Free Text HPI Notes 32 M presents to the ED with upper abd pain with diarrhea. Has PUD hzx with blck stools and dizzy General Confirmed Patient Yes Initial Greet Date/Time 11/14/22 1242 Provider in Triage Greet Note I have greeted and performed a focused rapid initial assessment of this patient. A comprehensive ED assessment and evaluation of the patient, analysis of all test results, and completion of the medical decision-making process will be conducted by additional ED providers. Past Medical History - Adult Stated Complaint UPPER ABD PAIN,DIARRHEA Physical Exam Focused PE General/Const General/Const Awake, Alert, No acute distress, Not toxic appearing Interpretation Diagnostics Lab Results Interpretation Results Laboratory Tests 03/31/23 1356: [Embedded Image Not Available] Laboratory Tests: 11/14 11/14 11/14 1356 1355 1355 Chemistry Sodium (134 - 147 mEq/L) 141 Potassium (3.4 - 5.0 mEq/L) 3.6 Chloride (100 - 108 mEq/L) 107 Carbon Dioxide (21 - 33 mEq/l) 27 Anion Gap (0 - 20) 10 BUN (7 - 18 mg/dL) 12 Creatinine (0.6 - 1.3 mg/dL) 1.0 Glomerular Filtr Rate (105 - 110) 102.6 L Glucose (70 - 110 mg/dL) 97 Calcium (8.0 - 10.5 mg/dL) 9.2 Total Bilirubin (0.0 - 1.0 mg/dL) 0.50 AST (15 - 37 IUnit/L) 22 ALT (30 - 65 IUnit/L) 21 L Total Alk Phosphatase (20 - 125 IUnit/L) 85 Troponin I High Sens (0 - 54 ng/L) < 3 Total Protein (6.4 - 8.2 g/dL) 7.4 Albumin (3.4 - 5.0 g/dL) 4.40 Hematology WBC (4.5 - 11.0 x10 3/uL) 7.6 RBC (4.00 - 5.60 x10 6/uL) 5.12 Hgb (12.5 - 16.9 g/dL) 15.5 Hct (37.5 - 50.7 %) 44.4 MCV (81.0 - 99.0 fL) 86.7 MCH (27.0 - 33.0 pg) 30.3 MCHC (33.0 - 37.0 g/dL) 34.9 RDW (11.5 - 14.5 %) 13.2 Plt Count (150 - 400 x10 3/uL) 297 MPV (7.0 - 9.0 fL) 9.9 H Neut % (Auto) (56.0 - 77.0 %) 53.9 L Lymph % (Auto) (14.0 - 32.0 %) 30.7 [place] % (Auto) (4.8 - 9.0 %) 10.0 H Eos % (Auto) (0.3 - 3.7 %) 4.3 H Baso % (Auto) (0.0 - 2.0 %) 0.8 Neut # (Auto) (2.0 - 7.6 x10 3/uL) 4.09 Lymph # (Auto) (1.0 - 3.8 x10 3/uL) 2.33 [place] # (Auto) (0.1 - 0.8 x10 3/uL) 0.76 Eos # (Auto) (0.0 - 0.2 x10 3/uL) 0.33 H Baso # (Auto) (0.0 - 0.2 x10 3/uL) 0.06 Abs Immat Gran (auto) (0.00 - 0.03 x10 3/uL) 0.02 Add Manual Diff NO Immature Gran % (0.0 - 2.0 %) 0.3 Nucleated RBC % (0 - 0 %) 0.0 Nucleated RBCs # (Man) (0.0 - 0.1 x10 3/uL) 0.00 Serology Influenza Type A (PCR) (Negative) Negative Influenza Type B (PCR) (Negative) Negative SARS CoV-2 RNA Rapid ROBBIE (Negative) NEGATIVE Recent Impressions: RADIOLOGY - XR CHEST 1 V 11/14 1407 Report Impression - Status: SIGNED Entered: 11/14/2022 1431 IMPRESSION: No acute cardiopulmonary process detected. Impression By: Mehdi - Jose Antonio Camara M.D. Patient Discharge Departure Vital Signs/Condition Vital Signs First Documented: Result Date Time Pulse Ox 97 11/14 1307 B/P 107/69 11/14 1307 B/P Mean 81 11/14 1307 O2 Delivery Room air 11/14 130 Temp 36.4 11/14 1307 Pulse 79 11/14 1307 Resp 16 11/14 1307 Last Documented: Result Date Time Pulse Ox 97 11/14 1307 B/P 107/69 11/14 1307 B/P Mean 81 11/14 1307 O2 Delivery Room air 11/14 130 Temp 36.4 11/14 1307 Pulse 79 11/14 1307 Resp 16 11/14 1307 All vital signs available at the time of this entry have been reviewed. Corey Lucio 11/14/22 1615: HPI-Nausea/Vomit/Diarrhea Presentation Chief Complaint Abd pain, intermittent Past Medical History - Adult Allergies Coded Allergies: Sulfa (Sulfonamide Antibiotics) (HIVES 11/14/22) Physical Exam Vital Signs Vital Signs First Documented: Result Date Time Pulse Ox 97 11/14 130 B/P 107/69 11/14 130 B/P Mean 81 11/14 1307 O2 Delivery Room air 11/14 1306 Temp 36.4 11/14 1306 Pulse 79 11/14 130 Resp 16 11/14 1306 Last Documented: Result Date Time Pulse Ox 97 11/14 1307 B/P 107/69 11/14 130 B/P Mean 81 11/14 130 O2 Delivery Room air 11/14 1306 Temp 36.4 11/14 130 Pulse 79 11/14 130 Resp 16 11/14 1306 Review of Vital Signs Reviewed Free Text PE Notes Free Text PE Notes General/Const No acute distress, awake and alert Head Atraumatic, normocephalic Ears/Nose/Throat Airway patent MS Neck Good neck range of motion Resp/Chest No respiratory distress Cardiovascular Normal rate, normal rhythm, intact distal pulses Abdomen/GI Nondistended, soft, no guarding MSK Bilateral upper extremities and lower extremities with good range of motion Skin No rash Neurologic Alert and oriented x3, no focal neurodeficits Psychiatric Appropriate affect Re-Evaluation MDM Free Text MDM Notes Free Text MDM Notes Patient initially seen by BHAVYA in triage to initiate work-up. I independently interviewed and examined the patient myself. In brief patient arrives today due to concern for upper abdominal pain. Examination markable well-appearing nontoxic individual was in no acute distress. Patient's lab work reviewed by me , shows reassuring CBC, reassuring metabolic profile, within normal ranges troponin, negative COVID and flu testing. Chest x-ray independently reviewed and interpreted by me, shows no acute intrathoracic process. EKG independently reviewed and interpreted by me, shows normal sinus rhythm, rate of 75, no acute ST segment elevations, intervals are nonconcerning. Further scheduled the patient patient reports that has been having some dark tarry stools. Patient does report he had a recent EGD approximately 2 weeks ago where they had initially found an ulcer. After the patient admission for his peptic ulcer disease and his persistent melanic stools. Ultimately patient declined admission at this time however will reconsider if symptoms worsen. Will initiate Pepcid and also prescribe the patient lidocaine to help with the patient's ulcers. Will discharge home, return precautions given. ED Course Medication(s) Ordered Medication(s) Ordered: Autonomic Drugs Sig/Alan Start time Last Medication Dose Route Stop Time Status Admin Dicyclomine HCl 20 MG X1ED STA 11/14 1243 DC 11/14 PO 11/14 1244 1423 Patient Discharge Departure Clinical Impression Clinical Impression Primary Impression: Abdominal pain Secondary Impressions: PUD (peptic ulcer disease) Disposition Decision Discharge )( Discharged to Home Yes )( Time 1636 )( Date 11/14/22 Discharge/Care Plan (Auto) Prescriptions Current Visit Scripts FAMOTIDINE (PEPCID) 20 MG PO BID FAMOTIDINE (PEPCID) 20 MG PO BID #60 TABS LIDOCAINE (LIDOCAINE 2% VISCOUS) 15 ML SWISH SPIT Q3H PRN PRN reflux/ulcer LIDOCAINE (LIDOCAINE 2% VISCOUS) 15 ML SWISH SPIT Q3H PRN PRN reflux/ulcer #100 ML Patient Instructions ED Abdominal Pain Adult Additional Instructions As we discussed, you should take Pepcid in addition to your pantoprazole for your ulcers. I also prescribed you lidocaine which you should mix with Maalox or Mylanta as needed. If symptoms worsen and you would like to be admitted to the hospital and you should return to the emergency department for further evaluation and management. We have given her referral information to a airfreight operations agent which he should follow-up with. at [phone] at [phone] RPT #:[id number] END OF REPORT [facility]
[2024-11-14] MEDS ORDERED: IBUPROFEN 200 MG TAB PO ONE (10:26)
[2024-11-14] MEDS ORDERED: IBUPROFEN 400 MG TAB ONE (10:27)
[2024-11-14 10:53] LABS: Influenza A Ag Negative; Influenza B Ag Negative
[2024-11-14 10:55] LABS: SARS-CoV-2 Antigen Rapid Res Positive (Negative)
--- NOTE | 2024-11-14 11:19 | ER ---
Nurse's Notes [facility] Name: Yogi Koehler Age: 34 yrs Sex: Male : 1990 Arrival Date: 11/14/2024 Time: 10:12 Bed 15 Private MD: Diagnosis: SARS-associated coronavirus as the cause of diseases classified elsewhere Presentation: 11/14 10:21 Chief complaint: Patient states: Fever since Thursday. Slight cough, body aches, ss fatigue, weak, nausea since. Coronavirus screen: Client denies travel out of the [place] in the last 14 days. cough unrelated to allergies, fatigue, fever, muscle pain, Client presents with at least one sign or symptom that may indicate coronavirus-19. Standard/surgical mask placed on the client. Ebola Screen: Patient denies travel to an Ebola-affected area in the 21 days before illness onset. Initial Sepsis Screen: Does the patient meet any 2 criteria? No. Patient's initial sepsis screen is negative. Does the patient have a suspected source of infection? No. Patient's initial sepsis screen is negative. Risk Assessment: Do you want to hurt yourself or someone else? Patient reports no desire to harm self or others. Onset of symptoms was November 12, 2024. 10:21 Method Of Arrival: Ambulatory ss 10:21 Acuity: ILEANA 3 ss Triage Assessment: 10:25 General: Appears uncomfortable, Behavior is calm, cooperative, appropriate for age, ll1 Reports fever for feeling ill for fatigue for. Pain: Complains of pain in body Quality of pain is described as aching. EENT: Reports nasal congestion. Neuro: Reports weakness. Respiratory: Reports cough that is. GI: Reports nausea. Historical: - Allergies: 10:16 Sulfa (Sulfonamide Antibiotics); ss - Immunization history:: Adult Immunizations up to date. - Infectious Disease History:: Denies. - Social history:: Smoking status: Patient denies any tobacco usage or history of. Screenin:16 [facility] ED Fall Risk Assessment (Adult) History of falling in the last 3 months, ph including since admission No falls in past 3 months (0 pts) Confusion or Disorientation No (0 pts) Intoxicated or Sedated No (0 pts) Impaired Gait No (0 pts) Mobility Assist Device Used No (0 pt) Altered Elimination No (0 pt) Score/Fall Risk Level 0 - 2 = Low Risk Oriented to surroundings, Maintained a safe environment, Hourly rounding (assess needs \T\ fall precautionary measures) done. Abuse screen: Denies threats or abuse. Denies injuries from another. Nutritional screening: No deficits noted. Tuberculosis screening: No symptoms or risk factors identified. Assessment: 10:27 General: Appears in no apparent distress. Behavior is calm, cooperative, appropriate ph for age, Reports chills for fever for 2-3 days, fatigue for 2-3 days. Pain: Denies pain. Neuro: Level of Consciousness is awake, alert, obeys commands, Oriented to person, place, time, situation. Cardiovascular: Capillary refill < 3 seconds in bilateral fingers Patient's skin is warm and dry. Respiratory: Reports cough that is Airway is patent Respiratory effort is even, unlabored, Denies shortness of breath. GI: Reports nausea, Patient currently denies abdominal pain, diarrhea, vomiting. Derm: Skin is pink, warm \T\ dry. Vital Signs: 10:21 BP 122 / 78; Pulse 89; Resp 18; Temp 100.1; Pulse Ox 94% on R/A; ss 11:34 BP 118 / 68; Pulse 87; Resp 18; Temp 98.9; Pulse Ox 98% on R/A; ph ED Course: 10:14 Patient arrived in ED. mr 10:14 Hakan Stovall MD is Attending Physician. sp3 10:16 Renae Isidro, RN is Primary Nurse. ph 10:16 Arm band placed on Patient placed in an exam room, on a stretcher. ss 10:24 Triage completed. ss 10:28 Patient has correct armband on for positive identification. Bed in low position. Call ph light in reach. Side rails up X 1. Pulse ox on. NIBP on. Door closed. Noise minimized. Warm blanket given. Pillow given. 10:28 COVID swab sent to lab. Flu and/or RSV swab sent to lab. Strep swab sent to lab. ph 10:29 COVID-19 Ag + Flu A+B Ag Sent. ph 10:29 Group A Streptococcus Rapid Sent. ph 10:39 CXR XRAY In Process Unspecified. EDMS 11:34 No provider procedures requiring assistance completed. Patient did not have IV access ph during this emergency room visit. Administered Medications: 10:34 Drug: Ibuprofen PO 600 mg PO once Route: PO; ph 10:34 Follow up: Response: No adverse reaction ph Medication: 10:28 VIS not applicable for this client. ph Outcome: 11:18 Discharge ordered by . sp3 11:34 Discharged to home ambulatory, with significant other, ph 11:34 Condition: good 11:34 Discharge instructions given to patient, Instructed on discharge instructions, follow up and referral plans. medication usage, Demonstrated understanding of instructions, follow-up care, wound care, Prescriptions given X 1, 11:35 Patient left the ED. ph Signatures: Dispatcher [employer] EDMT Virginie Mckeon, Reg Reg mr Chasity Garcia, THAO RN ss Renae Isidro RN RN ph Lewis, Lynsay, RN RN [facility] Hakan Stovall MD MD sp3
--- NOTE | 2024-11-14 11:19 | EDPHYS ---
Physician Documentation [facility] Name: Yogi Koehler Age: 34 yrs Sex: Male : 1990 Arrival Date: 11/14/2024 Time: 10:12 Bed 15 Private MD: ED Physician Hakan Stovall HPI: 11/14 10:26 This 34 yrs old Male presents to ER via Ambulatory with complaints of Fever. sp3 10:26 34-year-old male with no significant past medical history presents with 2 days of sp3 fever, body aches and sick contact with his significant other. He denies any significant cough or sore throat or vomiting or diarrhea. Remainder of ROS negative.. Historical: - Allergies: 10:16 Sulfa (Sulfonamide Antibiotics); ss - Immunization history:: Adult Immunizations up to date. - Infectious Disease History:: Denies. - Social history:: Smoking status: Patient denies any tobacco usage or history of. ROS: 10:27 Eyes: Negative for injury, pain, redness, and discharge, Neck: Negative for injury, sp3 pain, and swelling, Cardiovascular: Negative for chest pain, palpitations, and edema, Respiratory: Negative for shortness of breath, cough, wheezing, and pleuritic chest pain, Abdomen/GI: Negative for abdominal pain, nausea, vomiting, diarrhea, and constipation, Back: Negative for injury and pain, MS/Extremity: Negative for injury and deformity, Skin: Negative for injury, rash, and discoloration, Neuro: Negative for headache, weakness, numbness, tingling, and seizure, Psych: Negative for depression, anxiety, suicide ideation, homicidal ideation, and hallucinations, Allergy/Immunology: Negative for hives, rash, and allergies, Endocrine: Negative for neck swelling, polydipsia, polyuria, polyphagia, and marked weight changes, 10:27 All other systems are negative, Exam: 10:27 Head/Face: Normocephalic, atraumatic. Eyes: Pupils equal round and reactive to light, sp3 extra-ocular motions intact. Lids and lashes normal. Conjunctiva and sclera are non-icteric and not injected. Cornea within normal limits. Periorbital areas with no swelling, redness, or edema. Neck: Trachea midline, no thyromegaly or masses palpated, and no cervical lymphadenopathy. Supple, full range of motion without nuchal rigidity, or vertebral point tenderness. No Meningismus. Chest/axilla: Normal chest wall appearance and motion. Nontender with no deformity. No lesions are appreciated. Cardiovascular: Regular rate and rhythm with a normal S1 and S2. No gallops, murmurs, or rubs. Normal PMI, no JVD. No pulse deficits. Respiratory: Lungs have equal breath sounds bilaterally, clear to auscultation and percussion. No rales, rhonchi or wheezes noted. No increased work of breathing, no retractions or nasal flaring. Abdomen/GI: Soft, non-tender, with normal bowel sounds. No distension or tympany. No guarding or rebound. No evidence of tenderness throughout. Back: No spinal tenderness. No costovertebral tenderness. Full range of motion. Skin: Warm, dry with normal turgor. Normal color with no rashes, no lesions, and no evidence of cellulitis. MS/ Extremity: Pulses equal, no cyanosis. Neurovascular intact. Full, normal range of motion. Neuro: Awake and alert, GCS 15, oriented to person, place, time, and situation. Cranial nerves II-XII grossly intact. Motor strength 5/5 in all extremities. Sensory grossly intact. Cerebellar exam normal. Normal gait. Vital Signs: 10:21 BP 122 / 78; Pulse 89; Resp 18; Temp 100.1; Pulse Ox 94% on R/A; ss 11:34 BP 118 / 68; Pulse 87; Resp 18; Temp 98.9; Pulse Ox 98% on R/A; ph MDM: 10:17 Medical Screening Exam initiated sp3 10:28 Data reviewed: vital signs, nurses notes, lab test result(s), radiologic studies. ED sp3 course: 34-year-old male with fever and bodyaches. Differential diagnosis includes viral illness, COVID-19, influenza, strep pharyngitis, pneumonia, bronchitis, other infection. I am not highly suspicious of sepsis, shock, ACS, PE, or any other critical process. Workup include chest x-ray and swabs for influenza, COVID and strep. Disposition pending workup and patient course. Will treat low-grade fever of 100.1 with ibuprofen.. 11:17 ED course: Chest x-ray negative. COVID-19 positive. We will treat with antiviral and sp3 discharge home.. 11/14 10:22 Order name: Group A Streptococcus Rapid; Complete Time: 11:16 sp3 11/14 10:22 Order name: COVID-19 Ag + Flu A+B Ag; Complete Time: 11:16 sp3 11/14 10:45 Order name: Throat Culture EDMS 11/14 10:22 Order name: CXR XRAY sp3 Administered Medications: 10:34 Drug: Ibuprofen PO 600 mg PO once Route: PO; ph 10:34 Follow up: Response: No adverse reaction ph Disposition Summary: 11/14/24 11:18 Discharge Ordered Notes: Location: Home sp3 Condition: Stable sp3 Diagnosis - SARS-associated coronavirus as the cause of diseases classified elsewhere sp3 Followup: sp3 - With: Private Physician - When: Upon discharge from the Emergency Department - Reason: Continuance of care Discharge Instructions: - Discharge Summary Sheet sp3 - COVID-19 sp3 Forms: - Work release form ph - Medication Reconciliation Form sp3 - Antibiotic Education sp3 - Prescription Opioid Use sp3 - Patient Portal Instructions sp3 - Leadership Thank You Letter sp3 Prescriptions: - Paxlovid 300 mg (150 mg x 2)-100 mg Oral Tablet, Dose Pack - take 1 dose pack ORAL route per package directions; 1 Blister; Refills: 0, sp3 Product Selection Permitted Signatures: Dispatcher [employer] EDChasity Piendo RN RN Renae Yan RN RN Hakan Stovall MD MD sp3 Corrections: (The following items were deleted from the chart) 10:22 10:22 Chest Single View+RAD.RAD.BRZ ordered. EDMS EDMS 10:23 10:23 Group A Streptococcus Rapid Sc+I.LAB.BRZ ordered. EDMS EDMS 10:23 10:23 COVID-19 Ag + Flu A+B Ag+I.LAB.BRZ ordered. EDMS EDMS
[2024-11-14 11:41] VITALS: BP 118/68; TEMP 98.9; O2SAT 98
--- NOTE | 2024-11-14 11:45 | RAD REPORT ---
Procedure: Chest Single View HISTORY: Cough COMPARISON: 2014 FINDINGS: The lungs appear clear of acute infiltrate. No significant pleural effusion noted. The heart is normal size. IMPRESSION: No acute abnormality is displayed.
== END 2024-11-14 11:35 | disposition home or self-care (01) ==
LOC: ER 10:12
DX: U07.1 COVID-19 (principal)
CPT/HCPCS: 36415; 71045; 87070; 87428; 99284